=== PATIENT | female | born 1950 | race Asian ===

== ENCOUNTER → 2017-10-03 10:12 | Outpatient (CLI) | payer OTHER, SELFPAY ==
--- NOTE | 2017-10-03 10:20 | DI.RAD.S_ITS ---
PROCEDURE: XR KNEE LT 3V INDICATIONS: Left knee pain - hx of injury suspect osteoarthritis TECHNIQUE: 3 views of the knee were acquired. COMPARISON: None. FINDINGS: Bones: No fractures or dislocations. No suspicious bony lesions. Minimal spurring of the posterior patella Soft tissues: No joint effusion. No suspicious soft tissue calcifications. IMPRESSION: 1. No acute bony abnormality. 2. Joint spaces appear preserved. Minimal hypertrophic changes posterior patella. Dictated by: Jose Nice M.D. on 10/03/2017 at 11:30 Approved by: Jose Nice M.D. on 10/03/2017 at 11:31
[2017-10-03 13:11] LABS: Thyroid Stimulating Hormone 1.87 uIU/mL (0.47-4.68)
== END ==
PROVIDERS: PCP Physician Assistant; Visit Provider Physician Assistant
DX: Z92.3 Personal history of irradiation (principal); Z87.828 Personal history of other (healed) physical injury and trauma; M25.562 Pain in left knee
CPT/HCPCS: 36415; 73562; 84443

== ENCOUNTER → 2017-10-09 14:24 | Outpatient (CLI) | payer OTHER, SELFPAY ==
[2017-10-12 17:18] LABS: Fecal Immunochemical Test NOT DETECTED
== END ==
PROVIDERS: PCP Physician Assistant; Visit Provider Physician Assistant
DX: Z12.11 Encounter for screening for malignant neoplasm of colon (principal)
CPT/HCPCS: 82274

== ENCOUNTER → 2017-10-18 10:23 | Outpatient (CLI) | payer OTHER, SELFPAY ==
[2017-10-18 10:48] LABS: Add Manual Diff / Slide Review NO; Basophils Percent Auto 0.7 % (0-2); Eosinophils Percent Auto 2.3 % (2-4); Hematocrit 36.7 % (36-46); Hemoglobin 11.4 g/dL (12.0-16.0); Lymphocytes Percent Auto 24.9 % (25-40); Mean Corpuscular HGB Conc 31.2 % (30-36); Mean Corpuscular Hemoglobin 21.1 PG (26-34); Mean Corpuscular Volume 67.8 fL (80-100); Monocytes Percent Auto 7.1 % (3-14); Neutrophils Absolute Auto 2800 /uL (3000-5900); Platelet Count 290 X10^3/uL (150-400); Red Blood Cell Count 5.41 X10^6/uL (4.0-5.2); White Blood Cell Count 4.3 X10^3/uL (4.5-11.0)
[2017-10-18 11:05] LABS: Alanine Aminotransferase 38 IU/L (9-52); Albumin 4.4 g/dL (3.5-5.0); Albumin Globulin Ratio 1.4 (1.0-2.8); Alkaline Phosphatase 59 U/L (38-126); Aspartate Aminotransferase 36 IU/L (14-36); BUN Creatinine Ratio 21.7 (6-22); Bilirubin Total 0.8 mg/dL (0.2-1.3); Blood Urea Nitrogen 13 mg/dL (7-17); Calcium 9.1 mg/dL (8.4-10.2); Carbon Dioxide 33 mmol/L (22-32); Chloride 103 mmol/L (98-107); Estimated Glomerular Filt Rate > 60.0 mL/min (>60); Globulin 3.2 g/dL (1.7-4.1); Glucose 97 mg/dL (80-110); HEMOLYSIS < 15 (0-50); Potassium 4.7 mmol/L (3.4-5.1); Sodium 144 mmol/L (137-145); Total Protein 7.6 g/dL (6.3-8.2)
[2017-10-18 11:15] LABS: Hypochromasia 2+; Microcytosis 2+
[2017-10-18 12:57] LABS: Lactate Dehydrogenase 449 U/L (313-618)
== END ==
PROVIDERS: Family Provider Physician Assistant; PCP Physician Assistant; Visit Provider Nurse Practitioner Gerontology
DX: C85.90 Non-Hodgkin lymphoma, unspecified, unspecified site (principal)
CPT/HCPCS: 36415; 80053; 83615; 85025

== ENCOUNTER → 2017-10-18 10:45 | Outpatient (CLI) | payer OTHER, SELFPAY ==
--- NOTE | 2017-10-18 10:48 | DI.US.S_ITS ---
PROCEDURE: US THYROID INDICATIONS: History of thyroid radiation for Non Hodgkins Lymphoma TECHNIQUE: Real-time scanning was performed of the thyroid gland, with image documentation. COMPARISON: [facility], [place], THYROID, 09/26/2016, 8:43. FINDINGS: Right: Thyroid lobe measures 4.7 x 1.3 x 1.5 cm, and is homogeneous in echotexture. Left: Thyroid lobe measures 5.5 x 1.5 x 1.2 cm, and is homogenous in echotexture. Isthmus: 3 mm thick. No thyroid nodules or abnormal findings of the thyroid. IMPRESSION: Normal thyroid ultrasound. ACR TI-RADS definitions and recommendations: TI-RADS 1 (benign): 0 points. FNA not needed. TI-RADS 2 (not suspicious): 2 points. FNA not needed. TI-RADS 3 (mildly suspicious): 3 points. * FNA if 2.5 cm or larger, follow up if 1.5 cm or larger (at 1, 3, and 5 years). TI-RADS 4 (moderately suspicious): 4-6 points. * FNA if 1.5 cm or larger, follow up if 1 cm or larger (at 1, 2, 3, and 5 years). TI-RADS 5 (highly suspicious): 7 points or more. * FNA if 1 cm or larger, follow up if 0.5 cm or larger (every year for 5 years). Dictated by: Ara Juares M.D. on 10/18/2017 at 12:54 Approved by: Ara Juares M.D. on 10/18/2017 at 12:55
--- NOTE | 2017-10-18 10:55 | DI.CT.S_ITS ---
PROCEDURE: CT CHEST W CON INDICATIONS: SURVEILLANCE LARGE B CELL LYMPHOMA TECHNIQUE: After the administration of intravenous contrast, 5 mm thick sections acquired from the pulmonary apices to the posterior costophrenic angles. 7 mm thick coronal and sagittal MIP reformats were acquired. For radiation dose reduction, the following was used: automated exposure control, adjustment of mA and/or kV according to patient size. COMPARISON: [place], [place], PET/CT SKULL BASE TO MID THIGH, 12/14/2016, 10:48. FINDINGS: Image quality: Excellent. Lungs and pleura: There is biapical scarring. Dependent atelectasis in posterior aspect of bilateral lung aguirre are seen. No acute air space opacities. No pleural effusions or pneumothorax. Central and peripheral airways are patent and normal in caliber. Mediastinum: Heart size is normal. No pericardial effusion. No mediastinal or hilar adenopathy by size criteria. Thoracic aorta and central pulmonary arteries are normal in size. Esophagus is normal in caliber. Small hiatal hernia is seen. Bones and chest wall: No suspicious bony lesions. No vertebral body compression fractures. No axillary or supraclavicular adenopathy by size criteria. Thyroid gland is within normal limits. Abdomen: Visualized upper abdominal solid organs appear normal. Upper abdominal bowel loops are normal in caliber. IMPRESSION: 1. No mediastinal or hilar adenopathy. No supraclavicular or axillary adenopathy. 2. Bibasilar atelectasis and biapical scarring/atelectasis. Bilateral lungs are otherwise clear. Airway is patent. Dictated by: Reagan Erickson M.D. on 10/18/2017 at 12:56 Approved by: Reagan Erickson M.D. on 10/18/2017 at 13:05
--- NOTE | 2017-10-18 10:55 | DI.CT.S_ITS ---
PROCEDURE: CT SOFT TISSUE NECK W CON INDICATIONS: SURVEILLANCE LARGE B CELL LYMPHOMA TECHNIQUE: After the administration of intravenous contrast, 3.0 mm axial sections acquired from the sella to the aortic arch. Additional oblique axial 3.0 mm sections acquired through the pharynx. 3 mm thick coronal and sagittal reformats were generated. For radiation dose reduction, the following was used: automated exposure control. COMPARISON: [facility], CT, SOFT TISSUE NECK W CONTRAST, 08/11/2016, 9:49. [facility], CT, CT CHEST W CON, 10/18/2017, 11:29. [facility], CT, SOFT TISSUE NECK W CONTRAST, 05/02/2017, 11:04. FINDINGS: Image quality: Excellent. Lymph nodes: No enlarged lymph nodes seen throughout the neck. Vessels: Visualized vasculature appears patent. Neck spaces: The oropharynx, nasopharynx, and pharynx demonstrate no mucosal lesions. The vocal cords, false vocal cords, pyriform sinuses, epiglottis, vallecula, and tongue base all appear normal. Extramucosal spaces appear unremarkable. Glands: The parotid and submandibular glands appear normal. Thyroid gland demonstrates no significant CT abnormality. Miscellaneous: Visualized brain and orbits appear normal. Lung apices appear clear. Superficial soft tissues appear normal. Bones: No suspicious bony lesions. Age-appropriate bony degenerative changes are seen. Visualized sinuses and mastoids appear unremarkable. IMPRESSION: No recurrent masses are seen. No enlarged lymph nodes are seen. Dictated by: Gaurav Yoon M.D. on 10/18/2017 at 14:38 Approved by: Gaurav Yoon M.D. on 10/18/2017 at 14:41
== END ==
PROVIDERS: PCP Physician Assistant; Visit Provider Nurse Practitioner Gerontology
DX: C83.30 Diffuse large B-cell lymphoma, unspecified site (principal); C83.31 Diffuse large B-cell lymphoma, lymph nodes of head, face, and neck; J98.11 Atelectasis; Z08 Encounter for follow-up examination after completed treatment for malignant neoplasm; Z92.3 Personal history of irradiation
CPT/HCPCS: 36415; 70491; 71260; 76536; 80053; 83615; 85025; Q9967

== ENCOUNTER → 2018-05-07 12:11 | Outpatient (CLI) | payer MEDICARE, SELFPAY ==
[2018-05-07 12:40] LABS: Basophils Absolute Auto 100 /uL (0-100); Basophils Percent Auto 0.7 % (0-2); Eosinophils Absolute Auto 300 /uL (0-450); Eosinophils Percent Auto 4.8 % (2-4); Hematocrit 36.7 % (36-46); Hemoglobin 11.3 g/dL (12.0-16.0); Lymphocytes Absolute Auto 1300 /uL (1100-4500); Lymphocytes Percent Auto 18.9 % (25-40); Mean Corpuscular HGB Conc 30.8 % (30-36); Mean Corpuscular Hemoglobin 20.9 PG (26-34); Mean Corpuscular Volume 67.8 fL (80-100); Monocytes Absolute Auto 500 /uL (0-900); Monocytes Percent Auto 7.7 % (3-14); Neutrophils Absolute Auto 4800 /uL (1500-7000); Neutrophils Percent Auto 67.9 % (50-75); Platelet Count 285 X10^3/uL (150-400); Red Blood Cell Count 5.41 X10^6/uL (4.0-5.2); Red Cell Distribution Width 15.3 % (11.6-14.8)
[2018-05-07 12:41] LABS: Add Manual Diff / Slide Review SLIDE REVIEW
[2018-05-07 12:49] LABS: Alanine Aminotransferase 30 IU/L (9-52); Albumin 4.3 g/dL (3.5-5.0); Albumin Globulin Ratio 1.3 (1.0-2.8); Alkaline Phosphatase 67 U/L (38-126); Aspartate Aminotransferase 28 IU/L (14-36); Bilirubin Total 0.5 mg/dL (0.2-1.3); Blood Urea Nitrogen 12 mg/dL (7-17); Carbon Dioxide 29 mmol/L (22-32); Chloride 99 mmol/L (98-107); Estimated Glomerular Filt Rate > 60.0 mL/min (>60); Globulin 3.3 g/dL (1.7-4.1); Glucose 106 mg/dL (80-110); HEMOLYSIS < 15 (0-50); Lactate Dehydrogenase 411 U/L (313-618); Potassium 4.3 mmol/L (3.4-5.1); Sodium 138 mmol/L (137-145); Total Protein 7.6 g/dL (6.3-8.2)
[2018-05-07 13:06] LABS: Hypochromasia 2+
[2018-05-07 13:07] LABS: Microcytosis 3+; Poikilocytosis 1+
== END ==
PROVIDERS: PCP Physician Assistant; Visit Provider Nurse Practitioner Gerontology
DX: C85.90 Non-Hodgkin lymphoma, unspecified, unspecified site (principal)
CPT/HCPCS: 36415; 80053; 83615; 85025

== ENCOUNTER 2022-06-17 11:07 | Emergency (ER) | payer MEDICARE, SELFPAY ==
[2022-06-17] VITALS (20 sets, daily range): BP systolic 143–190; BP diastolic 70–96; PULSE 62–85; RESP 16–28; TEMP 36.1; O2SAT 98–100; BMI 23.9
--- NOTE | 2022-06-17 11:19 | DI.RAD.S_ITS ---
PROCEDURE: XR CHEST 1V INDICATIONS: chest pain TECHNIQUE: One view of the chest was acquired. COMPARISON: None. FINDINGS: Surgical changes and devices: None. Lungs and pleura: Lungs are clear. No pleural effusions or pneumothorax. Mediastinum: Mediastinal contours appear normal. Heart size is normal. Bones and chest wall: No suspicious bony lesions. Overlying soft tissues appear unremarkable. IMPRESSION: No evidence acute pulmonary process. Dictated by: Kole Diaz M.D. on 06/17/2022 at 12:03 Approved by: Kole Diaz M.D. on 06/17/2022 at 12:04
[2022-06-17] MEDS: ASPIRIN 81 MG CHEW TAB 324 MG PO (11:23)
--- NOTE | 2022-06-17 11:37 | ED.CHESTPAIN ---
HPI - Chest Pain General Chief Complaint: Chest Pain Stated Complaint: sent by [facility] poss heart attack Time Seen by Provider: 06/17/22 11:37 Source: patient Mode of arrival: Ambulatory Limitations: no limitations History of Present Illness HPI narrative: 71-year-old female nonsmoker with noncontributory medical history presents with her at the request of the walk-in clinic for evaluation of chest pressure that started this morning. She had been feeling a bit off in the past few days and attributed to a recent COVID vaccination. For the last few days though she did not feel well she is a very hard time describing what that exactly means. Today she developed some central chest pressure while at rest which raised her level of concern. She states that she is had multiple episodes over the course of the morning and they seem to be happening with increased frequency. She denies any obvious provocation, palliation or radiation of the symptoms. She denies associated symptoms such as dizziness, weakness or lightheadedness but does state when her pain increases she does become short of breath. Related Data Home Medications Medication Instructions Recorded Confirmed multivitamin (Multiple Vitamins 1 tab PO QDAY ##0 10/18/16 10/14/21 tablet) Acyclovir 400 mg PO PRN PRN Cold Sores 09/27/17 10/14/21 Glucosamine/Chondroitin/MSM 1,500 mg PO DAILY 09/27/17 10/14/21 Ibuprofen 200 mg PO BID PRN Pain (Scale 09/27/17 10/14/21 Score 1-3) Previous Rx's Medication Instructions Recorded acyclovir 400 mg tablet 400 mg PO QID PRN lymphoma #30 tabs 11/08/21 Allergies Allergy/AdvReac Type Severity Reaction Status Date / Time No Known Drug Allergies Allergy Verified 06/17/22 11:16 Review of Systems Review of Systems Narrative: GENERAL: Denies chills, fatigue, malaise, fever, sweats. HEENT: Denies sinus pain, ear pain, sore throat, difficulty swallowing, dizziness. RESPIRATORY: see HPI CARDIOVASCULAR: Denies chest pain, palpitations, orthopnea, edema, GASTROINTESTINAL: Denies nausea, vomiting, abdominal pain, diarrhea, constipation, melena. : Denies dysuria, frequency, incontinence, hematuria, urinary retention. MUSCULOSKELETAL: denies weakness, joint pain, or bony pain SKIN: Denies rash, skin lesions, or other NEUROLOGIC: Denies weakness, headache, numbness, change in speech, confusion, seizures, incoordination. PSYCHIATRIC: No concerning psychosocial issues. 12 point review of systems is negative except for those stated above Patient History Medical History Allergic rhinitis (Unknown) B-cell lymphoma (~08/2016) Recurrent tonsillitis (~08/2016) Surgical History Status post delivery (02[birth year]08[birth year]) Family History Father No problems noted. Mother No problems noted. Grandmother No problems noted. Grandmother No problems noted. Grandfather No problems noted. Social History Smoking Status: Never smoker second hand exposure: No alcohol intake: current (wine maybe once a month if that.) substance use type: does not use Smoking Status: Never smoker alcohol intake frequency: holidays/special occasions only Substance Use Type: does not use Exam Narrative Exam Narrative: GENERAL: [] year old patient appears stated age. Well-developed patient, in mild distress. HEAD: Atraumatic. Normocephalic. EYES: Pupils equal round and reactive. Extraocular motions intact. No scleral icterus. No injection or drainage. ENT: Nose without bleeding, purulent drainage. Throat without erythema, tonsillar hypertrophy or exudate. Airway patent. NECK: Trachea midline. Non tender CARDIOVASCULAR: Regular rate and rhythm without murmurs, gallops, or rubs. RESPIRATORY: Clear to auscultation. Breath sounds equal bilaterally. No wheezes, rales, or rhonchi. GASTROINTESTINAL: Abdomen soft, non-tender, nondistended. EXTREMITIES: No edema or joint tenderness. BACK: Nontender without deformity or crepitance. No flank tenderness. NEURO: AOx3. SKIN: No rash or erythema of visible areas Initial Vital Signs Initial Vital Signs: Vital Signs Temperature 97.0 F L 06/17/22 11:16 Pulse Rate 63 06/17/22 11:16 Respiratory Rate 16 06/17/22 11:16 Blood Pressure 190/88 H 06/17/22 11:16 Pulse Oximetry 99 04/28/23 11:16 Oxygen Delivery Method Room Air 06/17/22 11:16 Scores HEART Score Heart Score history: Slightly Suspicious Heart Score EKG: Normal Heart Score Age: > or = 65 years old Heart Score risk factors: No known risk factors Heart Score troponin: < or = to normal limit Heart Score Total: 2 Course Orders Ordered: Discontinued Medications Aspirin (Aspirin 81 Mg Chew Tab) 324 mg PO NOW ONE Stop: 06/17/22 11:20 Last Admin: 06/17/22 11:23 Dose: 324 mg Documented By: DEIDRE Vital Signs Vital signs: Vital Signs - 8 hr 06/17/22 11:16 06/17/22 12:08 06/17/22 12:08 Temperature 97.0 F L Pulse Rate 63 Respiratory Rate 16 Blood Pressure 190/88 H 187/96 H Pulse Oximetry 99 99 Oxygen Delivery Method Room Air 06/17/22 12:17 06/17/22 12:17 06/17/22 12:30 Temperature Pulse Rate 76 Respiratory Rate Blood Pressure 176/81 H 169/78 H Pulse Oximetry 99 Oxygen Delivery Method 06/17/22 12:30 Temperature Pulse Rate 65 Respiratory Rate 24 Blood Pressure Pulse Oximetry 99 Oxygen Delivery Method MDM - Chest Pain Lab Data 06/17/22 11:36 06/17/22 11:36 Labs: Lab Results 06/17/22 06/17/22 06/17/22 Range/Units 11:24 11:36 11:36 WBC 5.1 (4.5-11.0) X10^3/uL RBC 5.93 H (4.0-5.2) X10^6/uL Hgb 12.6 (12.0-16.0) g/dL Hct 39.8 (36-46) % MCV 67.1 L (80-100) fL MCH 21.3 L (26-34) PG MCHC 31.8 (30-36) % RDW 15.1 H (11.6-14.8) % Plt Count 299 (150-400) X10^3/uL Neut % (Auto) 52.1 (50-75) % Lymph % (Auto) 34.5 (25-40) % [place] % (Auto) 9.7 (3-14) % Eos % (Auto) 3.1 (2-4) % Baso % (Auto) 0.6 (0-2) % Neut # (Auto) 2700 (3438-5634) /uL Lymph # (Auto) 1800 (5784-2671) /uL [place] # (Auto) 500 (0-900) /uL Eos # (Auto) 200 (0-450) /uL Baso # (Auto) 0 (0-100) /uL RBC Morphology See below Microcytosis 2+ H ESR (0-20) MM/HR PT 11.2 (10.1-12.7) SECONDS INR 1.0 (0.9-1.3) APTT 31 (26-36) SECONDS D-Dimer (<500) ng/ml Sodium (137-145) mmol/L Potassium (3.4-5.1) mmol/L Chloride (98-107) mmol/L Carbon Dioxide (22-32) mmol/L BUN (7-17) mg/dL Creatinine (0.52-1.04) mg/dL Estimated GFR (>60) mL/min BUN/Creatinine Ratio (6-22) Glucose (80-110) mg/dL Calcium (8.4-10.2) mg/dL Magnesium (1.6-2.3) mg/dL Total Bilirubin (0.2-1.3) mg/dL AST (14-36) IU/L ALT (<35) IU/L Alkaline Phosphatase (38-126) U/L Total Creatine Kinase (30-135) U/L CK-MB (CK-2) CK-MB (CK-2) Rel Index Troponin I (0.01-0.034) ng/mL C-Reactive Protein (<1.0) mg/dL Total Protein (6.3-8.2) g/dL Albumin (3.5-5.0) g/dL Globulin (1.7-4.1) g/dL Albumin/Globulin Ratio (1.0-2.8) Lipase (23-300) U/L Urine RBC (0-5/HPF) Urine WBC (0-5/HPF) Ur Squamous Epith Cells (0-5/HPF) Amorphous Sediment Urine Bacteria (None) SARS-CoV-2 (PCR) Negative (Negative) 06/17/22 06/17/22 06/17/22 Range/Units 11:36 11:36 11:36 WBC (4.5-11.0) X10^3/uL RBC (4.0-5.2) X10^6/uL Hgb (12.0-16.0) g/dL Hct (36-46) % MCV (80-100) fL MCH (26-34) PG MCHC (30-36) % RDW (11.6-14.8) % Plt Count (150-400) X10^3/uL Neut % (Auto) (50-75) % Lymph % (Auto) (25-40) % [place] % (Auto) (3-14) % Eos % (Auto) (2-4) % Baso % (Auto) (0-2) % Neut # (Auto) (5053-1848) /uL Lymph # (Auto) (6051-3300) /uL [place] # (Auto) (0-900) /uL Eos # (Auto) (0-450) /uL Baso # (Auto) (0-100) /uL RBC Morphology Microcytosis ESR 11 (0-20) MM/HR PT (10.1-12.7) SECONDS INR (0.9-1.3) APTT (26-36) SECONDS D-Dimer 246 (<500) ng/ml Sodium 134 L (137-145) mmol/L Potassium 4.0 (3.4-5.1) mmol/L Chloride 99 (98-107) mmol/L Carbon Dioxide 28 (22-32) mmol/L BUN 10 (7-17) mg/dL Creatinine 0.59 (0.52-1.04) mg/dL Estimated GFR > 60 (>60) mL/min BUN/Creatinine Ratio 16.9 (6-22) Glucose 102 (80-110) mg/dL Calcium 9.0 (8.4-10.2) mg/dL Magnesium 2.0 (1.6-2.3) mg/dL Total Bilirubin 0.5 (0.2-1.3) mg/dL AST 36 (14-36) IU/L ALT 34 (<35) IU/L Alkaline Phosphatase 86 (38-126) U/L Total Creatine Kinase 66 (30-135) U/L CK-MB (CK-2) TNP CK-MB (CK-2) Rel Index TNP Troponin I < 0.012 (0.01-0.034) ng/mL C-Reactive Protein (<1.0) mg/dL Total Protein 8.3 H (6.3-8.2) g/dL Albumin 4.6 (3.5-5.0) g/dL Globulin 3.7 (1.7-4.1) g/dL Albumin/Globulin Ratio 1.2 (1.0-2.8) Lipase 147 (23-300) U/L Urine RBC (0-5/HPF) Urine WBC (0-5/HPF) Ur Squamous Epith Cells (0-5/HPF) Amorphous Sediment Urine Bacteria (None) SARS-CoV-2 (PCR) (Negative) 06/17/22 06/17/22 06/17/22 Range/Units 11:36 13:25 13:54 WBC (4.5-11.0) X10^3/uL RBC (4.0-5.2) X10^6/uL Hgb (12.0-16.0) g/dL Hct (36-46) % MCV (80-100) fL MCH (26-34) PG MCHC (30-36) % RDW (11.6-14.8) % Plt Count (150-400) X10^3/uL Neut % (Auto) (50-75) % Lymph % (Auto) (25-40) % [place] % (Auto) (3-14) % Eos % (Auto) (2-4) % Baso % (Auto) (0-2) % Neut # (Auto) (1890-1495) /uL Lymph # (Auto) (3685-5241) /uL [place] # (Auto) (0-900) /uL Eos # (Auto) (0-450) /uL Baso # (Auto) (0-100) /uL RBC Morphology Microcytosis ESR (0-20) MM/HR PT (10.1-12.7) SECONDS INR (0.9-1.3) APTT (26-36) SECONDS D-Dimer (<500) ng/ml Sodium (137-145) mmol/L Potassium (3.4-5.1) mmol/L Chloride (98-107) mmol/L Carbon Dioxide (22-32) mmol/L BUN (7-17) mg/dL Creatinine (0.52-1.04) mg/dL Estimated GFR (>60) mL/min BUN/Creatinine Ratio (6-22) Glucose (80-110) mg/dL Calcium (8.4-10.2) mg/dL Magnesium (1.6-2.3) mg/dL Total Bilirubin (0.2-1.3) mg/dL AST (14-36) IU/L ALT (<35) IU/L Alkaline Phosphatase (38-126) U/L Total Creatine Kinase 67 (30-135) U/L CK-MB (CK-2) TNP CK-MB (CK-2) Rel Index TNP Troponin I < 0.012 (0.01-0.034) ng/mL C-Reactive Protein 1.1 H (<1.0) mg/dL Total Protein (6.3-8.2) g/dL Albumin (3.5-5.0) g/dL Globulin (1.7-4.1) g/dL Albumin/Globulin Ratio (1.0-2.8) Lipase (23-300) U/L Urine RBC None seen (0-5/HPF) Urine WBC 5-10/hpf H (0-5/HPF) Ur Squamous Epith Cells 0-1 /hpf (0-5/HPF) Amorphous Sediment 1+ Urine Bacteria Occasional (0-1) (None) SARS-CoV-2 (PCR) (Negative) Urine Dip Bedside Urine Glucose Negative Bedside Urine Bilirubin - Negative Bedside Urine Ketone - Negative Urine Specific [place] 1.005 Bedside Urine Occult Blood - Negative Bedside Urine pH 6.0 Bedside Urine Protein - Negative Bedside Urine Urobilinogen 0.2 Bedside Urine Nitrite - Negative Bedside Urine Leukocytes ++ 125 Esterase MDM Narrative Medical decision making narrative: [71] year old patient presents with chest pain Multiple etiologies for patient's symptoms considered including, but not limited to: [Cardiac ischemia versus pulmonary embolism versus pneumonia versus other] Prior Charts reviewed in our EMR Primary Historian: patient Labs reviewed and interpreted by myself: No leukocytosis or left shift, no signs of anemia, electrolytes within normal, troponin x2 negative, D-dimer below age corrected cutoff Imaging reviewed: Chest x-ray demonstrates no acute process Patient's symptoms improved over duration of stay with above-stated therapies. Findings and discharge diagnosis discussed with patient/family followed by verbalization of understanding Return precautions discussed with patient/family whom verbalize understanding of diagnosis and plan Discharge Plan Departure Patient Disposition: Home Clinical Impression: Atypical chest pain Instructions: DI for Atypical Chest Pain Activity Restrictions/Additional Instructions: *You have been diagnosed with [ atypical chest pain. As we discussed there is no evidence of heart attack, blood clot or pneumonia.] *What to do: *Please continue to take your regular medications as directed. [ ] New medication prescriptions sent to your pharmacy: [ ] [ ] New medication written as a paper prescription [ ] No new medications given *Please follow up with your primary care provider in 2-3 days, call for an appointment. Let them know you were seen in the Emergency Department and that we ask that you be seen in follow up. We will electronically transmit a record of today's note if your PCP is in our system *If you do not have a primary care provider please contact the [facility] Resource line at [phone]. They will ask some questions about your medical history and help get you set up with a doctor in the community. *Return to Emergency Department if you should have any new, worsening or concerning symptoms, such as [fever greater than 101 F, shaking chills, worsening pain, persistent vomiting or other bothersome symptoms] Prescriptions: No Action Glucosamine/Chondroitin/MSM 1,500 mg PO DAILY Acyclovir 400 mg PO PRN PRN (Reason: Cold Sores) Ibuprofen 200 mg PO BID PRN (Reason: Pain (Scale Score 1-3)) multivitamin [Multiple Vitamins] 1 EACH tablet 1 tab PO QDAY Qty: 0 acyclovir 400 mg Tablet 400 mg PO QID PRN (Reason: lymphoma) Qty: 30 1RF Referrals: Concepcion Figueroa PA-C [Primary Care Provider] - Stand Alone Forms: Patient Portal/API
[2022-06-17 11:49] LABS: Add Manual Diff / Slide Review NO; Basophils Absolute Auto 0 /uL (0-100); Basophils Percent Auto 0.6 % (0-2); Eosinophils Absolute Auto 200 /uL (0-450); Eosinophils Percent Auto 3.1 % (2-4); Hematocrit 39.8 % (36-46); Hemoglobin 12.6 g/dL (12.0-16.0); Lymphocytes Absolute Auto 1800 /uL (1100-4500); Lymphocytes Percent Auto 34.5 % (25-40); Mean Corpuscular HGB Conc 31.8 % (30-36); Mean Corpuscular Hemoglobin 21.3 PG (26-34); Mean Corpuscular Volume 67.1 fL (80-100); Monocytes Absolute Auto 500 /uL (0-900); Monocytes Percent Auto 9.7 % (3-14); Neutrophils Absolute Auto 2700 /uL (1500-7000); Neutrophils Percent Auto 52.1 % (50-75); Platelet Count 299 X10^3/uL (150-400); Red Blood Cell Count 5.93 X10^6/uL (4.0-5.2); Red Cell Distribution Width 15.1 % (11.6-14.8); White Blood Cell Count 5.1 X10^3/uL (4.5-11.0)
[2022-06-17 11:50] LABS: COVID19 -Nasal RAPID Negative (Negative)
[2022-06-17 12:02] LABS: Alanine Aminotransferase 34 IU/L (<35); Albumin 4.6 g/dL (3.5-5.0); Albumin Globulin Ratio 1.2 (1.0-2.8); Alkaline Phosphatase 86 U/L (38-126); Aspartate Aminotransferase 36 IU/L (14-36); BUN Creatinine Ratio 16.9 (6-22); Bilirubin Total 0.5 mg/dL (0.2-1.3); Blood Urea Nitrogen 10 mg/dL (7-17); Carbon Dioxide 28 mmol/L (22-32); Chloride 99 mmol/L (98-107); Creatine Kinase 66 U/L (30-135); Estimated Glomerular Filt Rate > 60 mL/min (>60); Globulin 3.7 g/dL (1.7-4.1); Glucose 102 mg/dL (80-110); HEMOLYSIS < 15 (0-50); Lipase 147 U/L (23-300); Sodium 134 mmol/L (137-145); Total Protein 8.3 g/dL (6.3-8.2)
[2022-06-17 12:09] LABS: Microcytosis 2+
[2022-06-17 12:14] LABS: Troponin I < 0.012 ng/mL (0.01-0.034)
[2022-06-17 12:28] LABS: Prothrombin Time 11.2 SECONDS (10.1-12.7)
[2022-06-17 12:30] LABS: PTT Partial Thromboplastin Tim 31 SECONDS (26-36)
[2022-06-17 13:21] LABS: D Dimer 246 ng/ml (<500)
[2022-06-17 13:24] LABS: C-Reactive Protein Quant 1.1 mg/dL (<1.0)
[2022-06-17 13:56] LABS: Amorphous Sediment Urine 1+; Bacteria Urine Occasional (0-1); RBC Urine None Seen (0-5/HPF); Squamous Epithelial Cell Urine 0-1 /HPF (0-5/HPF); WBC Urine 5-10/HPF (0-5/HPF)
[2022-06-17 13:58] LABS: Erythrocyte Sedimentation Rate 11 MM/HR (0-20)
[2022-06-17 14:25] LABS: Creatine Kinase 67 U/L (30-135)
[2022-06-17 14:39] LABS: Troponin I < 0.012 ng/mL (0.01-0.034)
== END 2022-06-17 16:04 | disposition home or self-care (01) ==
PROVIDERS: Emergency Provider Emergency Medicine; PCP Physician Assistant
DX: R07.89 Other chest pain (principal); R79.89 Other specified abnormal findings of blood chemistry; Z20.822 Contact with and (suspected) exposure to COVID-19
CPT/HCPCS: 36415; 71045; 80053; 81003; 81015; 82550; 83690; 83735; 84484; 85025; 85379; 85610; 85651; 85730; 86140; 87086; 87635; 93005; 93010; 99284; C9803

== ENCOUNTER → 2022-08-01 07:46 | Outpatient (CLI) | payer MEDICARE, SELFPAY ==
--- NOTE | 2022-08-01 07:47 | DI.NM.S_ITS ---
PROCEDURE: NM EXERCISE TREADMILL NON NUC COMPARISON: None INDICATIONS: Chest pain FINDINGS: Rest ECG sinus rhythm. Dillon protocol 5:32, maximum heart rate 171 bpm (115% peak predicted), maximum blood pressure 162/90, 7.0 METS, MARCELLE 0%. Exercise ECG sinus tachycardia, no ST segment changes, frequent PVCs. The patient did not complain of exercise-induced chest pain. IMPRESSION: Low risk study. No evidence of exercise-induced ischemia. Frequent PVCs noted throughout the test. Normal hemodynamic response. Fair exercise capacity. Dictated by: Tessa Hammond D.O. on 08/01/2022 at 17:33 Approved by: Tessa Hammond D.O. on 08/01/2022 at 17:35
== END ==
PROVIDERS: PCP Family Medicine; Referring Provider Family Medicine; Visit Provider Family Medicine
DX: R07.89 Other chest pain (principal)
CPT/HCPCS: 93017

== ENCOUNTER → 2022-08-26 07:40 | Outpatient (CLI) | payer MEDICARE, SELFPAY ==
[2022-08-26 08:45] LABS: Cholesterol 232 mg/dL (140-199); HDL Cholesterol 68 mg/dL (40-60); LDL Cholesterol Calculated 130 mg/dL (<100); Triglycerides 169 mg/dL (35-150)
== END ==
PROVIDERS: PCP Family Medicine; Referring Provider Family Medicine; Visit Provider Family Medicine
DX: R07.89 Other chest pain (principal)
CPT/HCPCS: 36415; 80061

== ENCOUNTER → 2022-09-01 14:38 | Outpatient (CLI) | payer MEDICARE, SELFPAY ==
--- NOTE | 2022-09-01 14:40 | DI.MG.S_ITS ---
BILATERAL DIGITAL SCREENING MAMMOGRAM 3D/2D WITH CAD: 09/01/2022 CLINICAL: Routine screening. Comparison is made to exam dated: 09/26/2016 mammogram - [facility]. There are scattered areas of fibroglandular density in both breasts (category b / 25%-50% glandular tissue). Current study was also evaluated with a Computer Aided Detection (CAD) system. No significant masses, calcifications, or other findings are seen in either breast. There has been no significant interval change. IMPRESSION: NEGATIVE There is no mammographic evidence of malignancy. A 1 year screening mammogram is recommended. Based on the Tyrer Cuzick model (a risk assessment model) the patient's lifetime risk is 4.6% and her 10 year risk is 3.1%. According to the ACR, ACS, and NCCN guidelines, an annual breast MRI exam along with mammogram is recommended if the patient's lifetime risk is 20% or greater. This exam was interpreted at Station ID: [id number]. NOTE: For mammograms, a report in lay terms will be sent to the patient. Approximately 15% of breast malignancies will not be visualized mammographically. In the management of a palpable breast mass, a negative mammogram must not discourage biopsy of a clinically suspicious lesion. Electronically Signed By: August odell/renate:09/02/2022 09:48:40 copy to: Jefry Bautista letter sent: Normal Exam ACR BI-RADS Category 1: Negative [id number]
--- NOTE | 2022-09-01 15:38 | DI.DEXA.S_ITS ---
Bone Density Report Name: GLADYS PRECIADO Age: 72 Sex: Female Ethnicity: White Date of : 1950 Indication: postmenopausal; screening for osteoporosis; Referring Provider: ROGERIO ECKERT Study: Bone densitometry was performed. Exam Date: September 01, 2022 Accession number: [id number] Bone Density: Region BMD T-score Z-score Classification AP Spine(L2, L3, L4) 0.704 -3.4 -1.2 Osteoporosis Femoral Neck (Left) 0.496 -3.2 -1.3 Osteoporosis Total Hip (Left) 0.597 -2.8 -1.3 Osteoporosis Femoral Neck (Right) 0.501 -3.1 -1.3 Osteoporosis Total Hip (Right) 0.608 -2.7 -1.2 Osteoporosis Total Hip Mean 0.603 -2.8 -1.3 Osteoporosis World Health Organization criteria for BMD impression classify patients as: Normal (T-score at or above -1.0), Osteopenia (T-score between -1.0 and -2.5), or Osteoporosis (T-score at or below -2.5). 10-year Fracture Risk: FRAX not reported because: Some T-score for Spine Total or Hip Total or Femoral Neck at or below -2.5 Impression: The patient has osteoporosis, based on the Total Spine T-score. Discussion: INCREASED RISK OF FRACTURE. BONE DENSITY IS UNDESIRABLY LOW AT ONE OR MORE SKELETAL SITES, CONSISTENT WITH POSTMENOPAUSAL OSTEOPOROSIS. This patient's lowest T-score meets the World Health Organization's (WHO) criteria for osteoporosis at one or more sites (T-score -2.5 or below). In untreated patients, the risk of osteoporotic fracture increases approximately two-fold for each 1.0 SD decrease in T-score. Low bone density is not the only risk factor for fracture; also consider factors such as patient's age, frailty or poor health, risk of falling, risk of injury, previous osteoporotic fracture, family history of osteoporosis, cigarette smoking, low body weight, etc. Not everyone with low bone mineral density has osteoporosis; osteomalacia and other metabolic bone disorders should also be considered. Patients who have osteoporosis should be evaluated for specific diseases and conditions (secondary causes) that may cause or contribute to bone loss. The [place] [employer]ocrinologists (AACE) and National Osteoporosis Foundation (NOF) recommend pharmacologic intervention for all postmenopausal women whose T-score is in this range. The patient should follow a healthful lifestyle (good nutrition with adequate calcium and vitamin D, and appropriate weight-bearing exercise). Follow-Up: Consider a repeat BMD and Vertebral Fracture Assessment (VFA) exam in 2 years or sooner if medically necessary, to reassess this patient's status. Reported by: MAT VELEZ M.D. on 09/01/2022 4:28:00 PM.
[2022-09-02 14:13] LABS: Fecal Immunochemical Test Negative (Negative)
== END ==
PROVIDERS: PCP Family Medicine; Referring Provider Family Medicine; Visit Provider Family Medicine
DX: Z12.31 Encounter for screening mammogram for malignant neoplasm of breast; Z12.11 Encounter for screening for malignant neoplasm of colon; Z13.820 Encounter for screening for osteoporosis; M81.0 Age-related osteoporosis without current pathological fracture; Z78.0 Asymptomatic menopausal state
CPT/HCPCS: 77063; 77067; 77080; 82274

== ENCOUNTER → 2023-09-05 15:26 | Outpatient (CLI) | payer MEDICARE, SELFPAY ==
[2023-09-05 17:44] LABS: Hematocrit 39.1 % (36-46); Hemoglobin 12.5 g/dL (12.0-16.0); Mean Corpuscular Hemoglobin 21.8 PG (26-34); Mean Corpuscular Volume 67.9 fL (80-100); Platelet Count 314 X10^3/uL (150-400); Red Blood Cell Count 5.76 X10^6/uL (4.0-5.2); Red Cell Distribution Width 15.1 % (11.6-14.8); White Blood Cell Count 7.5 X10^3/uL (4.5-11.0)
[2023-09-05 17:53] LABS: Alanine Aminotransferase 25 IU/L (<35); Albumin 4.6 g/dL (3.5-5.0); Albumin Globulin Ratio 1.2 (1.0-2.8); Alkaline Phosphatase 60 U/L (38-126); Aspartate Aminotransferase 32 IU/L (14-36); BUN Creatinine Ratio 16.9 (6-22); Bilirubin Total 0.7 mg/dL (0.2-1.3); Blood Urea Nitrogen 11 mg/dL (7-17); Carbon Dioxide 28 mmol/L (22-32); Chloride 105 mmol/L (98-107); Cholesterol 246 mg/dL (140-199); Estimated Glomerular Filt Rate > 60 mL/min (>60); Globulin 3.7 g/dL (1.7-4.1); Glucose 96 mg/dL (80-110); HDL Cholesterol 64 mg/dL (40-60); HEMOLYSIS < 15 (0-50); LDL Cholesterol Calculated 114 mg/dL (<100); Potassium 3.9 mmol/L (3.4-5.1); Sodium 139 mmol/L (137-145); Total Protein 8.3 g/dL (6.3-8.2); Triglycerides 342 mg/dL (35-150)
== END ==
PROVIDERS: PCP Family Medicine; Referring Provider Family Medicine; Visit Provider Family Medicine
DX: Z00.00 Encounter for general adult medical examination without abnormal findings (principal); C85.90 Non-Hodgkin lymphoma, unspecified, unspecified site; E78.2 Mixed hyperlipidemia; D56.9 Thalassemia, unspecified
CPT/HCPCS: 80053; 80061; 85027

== ENCOUNTER → 2023-09-11 09:47 | Outpatient (CLI) | payer MEDICARE, SELFPAY ==
[2023-09-12 12:10] LABS: Fecal Immunochemical Test Negative (Negative)
== END ==
PROVIDERS: PCP Family Medicine; Referring Provider Family Medicine; Visit Provider Family Medicine
DX: Z00.00 Encounter for general adult medical examination without abnormal findings (principal); D56.9 Thalassemia, unspecified; C85.90 Non-Hodgkin lymphoma, unspecified, unspecified site; E78.2 Mixed hyperlipidemia
CPT/HCPCS: 82274

== ENCOUNTER → 2024-09-10 15:41 | Outpatient (CLI) | payer MEDICARE, OTHER, SELFPAY ==
[2024-09-10 16:54] LABS: Add Manual Diff / Slide Review NO; Hematocrit 38.8 % (36-46); Hemoglobin 12.4 g/dL (12.0-16.0); Lymphocytes Absolute Auto 2000 /uL (1100-4500); Mean Corpuscular HGB Conc 31.9 % (30-36); Mean Corpuscular Hemoglobin 21.4 PG (26-34); Mean Corpuscular Volume 67.2 fL (80-100); Platelet Count 294 X10^3/uL (150-400)
[2024-09-10 17:09] LABS: Microcytosis 1+
[2024-09-10 17:37] LABS: Alanine Aminotransferase 19 IU/L (<35); Albumin 4.7 g/dL (3.5-5.0); Albumin Globulin Ratio 1.4 (1.0-2.8); Alkaline Phosphatase 65 U/L (38-126); Blood Urea Nitrogen 14 mg/dL (7-17); Calcium 9.4 mg/dL (8.4-10.2); Carbon Dioxide 28 mmol/L (22-32); Chloride 100 mmol/L (98-107); Cholesterol 249 mg/dL (140-199); Estimated Glomerular Filt Rate > 60 mL/min (>60); Globulin 3.3 g/dL (1.7-4.1); Glucose 87 mg/dL (70-99); HDL Cholesterol 72 mg/dL (40-60); HEMOLYSIS < 15 (0-50); Potassium 4.3 mmol/L (3.4-5.1); Sodium 138 mmol/L (137-145); Total Protein 8.0 g/dL (6.3-8.2); Triglycerides 177 mg/dL (35-150)
== END ==
PROVIDERS: PCP Family Medicine; Referring Provider Family Medicine; Visit Provider Family Medicine
DX: Z00.00 Encounter for general adult medical examination without abnormal findings (principal); C83.31 Diffuse large B-cell lymphoma, lymph nodes of head, face, and neck; E78.2 Mixed hyperlipidemia; D56.9 Thalassemia, unspecified; M81.0 Age-related osteoporosis without current pathological fracture
CPT/HCPCS: 36415; 80053; 80061; 85025

== ENCOUNTER → 2024-09-11 11:15 | Outpatient (CLI) | payer MEDICARE, OTHER, SELFPAY | PROVIDERS: PCP Family Medicine; Referring Provider Family Medicine; Visit Provider Family Medicine | DX: Z00.00 Encounter for general adult medical examination without abnormal findings (principal); C83.31 Diffuse large B-cell lymphoma, lymph nodes of head, face, and neck; D56.9 Thalassemia, unspecified; M81.0 Age-related osteoporosis without current pathological fracture; E78.2 Mixed hyperlipidemia | CPT/HCPCS: 82274 ==

== ENCOUNTER → 2024-09-18 14:54 | Outpatient (CLI) | payer MEDICARE, OTHER, SELFPAY ==
--- NOTE | 2024-09-18 14:57 | DI.MG.S_ITS ---
MM screening mammo BI: 09/18/2024. BI-RADS: 2 CLINICAL: 74-year old female for bilateral screening mammogram. Tyrer-Cuzick lifetime risk of 2.0%. No personal or first-degree family history of breast cancer. PRIOR EXAMS 09/01/2022, 09/26/2016. MAMMOGRAPHY TECHNIQUE: 2D and 3D (tomosynthesis) digital mammographic views obtained, with additional images as needed for full coverage. Current study was also evaluated with a Computer Aided Detection (CAD) system. DENSITY B. There are scattered areas of fibroglandular density. MAMMOGRAPHY FINDINGS Bilateral: Benign-appearing calcifications noted. There are no suspicious masses, calcifications, or other findings in the breast. No significant change from comparison. IMPRESSION: * No evidence of malignancy with benign findings. RECOMMENDATIONS Bilateral * Annual screening mammography. OVERALL ASSESSMENT CATEGORY BI-RADS-2: Benign. The [employer] recommends annual screening mammography beginning at age 40 for women with average risk of breast cancer. ELECTRONICALLY SIGNED: Daiana Zhong M.D. on 09/19/2024 at 12:00:02 AM PT Interpreting Station ID: [id number]
--- NOTE | 2024-09-18 14:57 | DI.RAD.S_ITS ---
PROCEDURE: XR DEXA AXIAL SKELETON INDICATIONS: osteoporosis COMPARISON: [facility], , XR DEXA AXIAL SKELETON, 09/01/2022, 15:12. FINDINGS: Lumbar Spine: Bone mineral density 0.732 (previously 0.704) g/cm2, T score -3.2 (previously-3.4). Left Femoral Neck: Bone mineral density 0.498 (previously 0.496) g/cm2, T score -3.2 (previously-3.2). Left Hip: Bone mineral density 0.591 (previously 0.597) g/cm2, T score -2.9 (previously-2.8). Fracture Risk Calculation (when applicable): 10-year fracture risk of a major osteoporotic fracture 20 percent and of a hip fracture 7.5 percent. IMPRESSION: Osteoporosis Follow-up guidelines as follows: Osteoporosis: Consider a repeat DEXA and Vertebral Fracture Assessment (VFA) exam in 2 years or sooner if medically necessary, to reassess this patient's status. Osteopenia: Consider a repeat DEXA in 2-3 years to reassess this patient's status, or if there is a new clinical indication. Normal: Consider a repeat DEXA in 5 years or sooner, or if there is a new clinical indication. All treatment decisions require clinical judgment and consideration of individual patient factors, including patient preferences, comorbidities, previous drug use, risk factors not captured in the FRAX model (e.g., frailty, falls, vitamin D deficiency, increased bone turnover, interval significant decline in bone density ) and possible under- or over-estimation of fracture risk by FRAX. In addition, the NOF Guide recommends that FDA-approved medical therapies be considered in postmenopausal women and men age >= 50 years with a: * Hip or vertebral (clinical or morphometric) fracture * T-score of <=-2.5 at the spine or hip * Ten-year fracture probability by FRAX of >= 3% for hip fracture or >=20% for major osteoporotic fracture. Dictated by: Ministerio Ann M.D. on 09/20/2024 at 5:33 Approved by: Ministerio Ann M.D. on 09/20/2024 at 5:35
== END ==
LOC: MAMMO 14:56
PROVIDERS: PCP Family Medicine; Referring Provider Family Medicine; Visit Provider Family Medicine
DX: Z12.31 Encounter for screening mammogram for malignant neoplasm of breast (principal); M81.0 Age-related osteoporosis without current pathological fracture
CPT/HCPCS: 77063; 77067; 77080